=== PATIENT | female | born 2005 | race Caucasian/White ===

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

== ENCOUNTER 2024-10-03 10:22 | Outpatient (CLI) | payer BC, SELFPAY ==
--- NOTE | ~2024-10-03 | US_ITS ---
EXAMINATION: US abdomen complete DATE: 10/03/2024 11:16 INDICATION: Abnormal liver enzymes TECHNIQUE: Multiple grayscale and Doppler ultrasound images of the abdomen were obtained. COMPARISON: None FINDINGS: The pancreatic head and body are normal in appearance. The pancreatic tail is not visualized. Abdomi nal aorta is normal measuring 1.9 cm in AP diameter proximally, 1.5 cm in the mid aorta and 1.7 cm in the distal aorta. The inferior vena cava is normal. Liver has normal echogenicity and contour, with a smooth surface. No liver lesion identified. No intrahepatic biliary duct dilation suspected. Portal venous flow was seen in the hepatopetal, normal direction and has normal Doppler waveform. The gallb ladder is normal in appearance. There is no cholelithiasis. The common bile duct measures 4-5 mm, wh ich is normal. Sonographic Vargas sign was reported as negative by the semi truck driver. There is normal r enal contour and echogenicity bilaterally. The right kidney measures 9.4 x 4.2 x 4.6 cm and the left 11.7 x 5.8 x 4.4 cm. There are no focal renal lesions identified. There is no hydronephrosis. Alexia l spleen measuring 12.0 cm maximal length. IMPRESSION: 1. Normal abdominal ultrasound. Reviewed, dictated and finalized at location B. [employer]ESSING [employer]MENT [employer]IC
== END 2024-10-03 10:23 | disposition home or self-care (01) ==
LOC: MICIMG 10:23
PROVIDERS: PCP Family Medicine; Visit Provider Nurse Practitioner Family
DX: R74.8 Abnormal levels of other serum enzymes (principal)
CPT/HCPCS: 76700

== ENCOUNTER 2025-03-10 01:41 | Day surgery (SDC) | payer BC, SELFPAY ==
[2025-02-27 14:33] VITALS: BMI 39.7
[2025-03-10 09:15] VITALS: BP 132/73; PULSE 86; RESP 18; TEMP 36.1; O2SAT 100; BMI 40.4
[2025-03-10 09:18] LABS: BEDSIDEPREGUCG Negative (Negative)
[2025-03-10] MEDS: LACTATED RINGERS 1,000 ML 150 ML IV CONT (09:28)
--- NOTE | 2025-03-10 09:33 | P.PNAN_ITS ---
Anes - Initial Pre Proc Eval Procedure: Operation Date: 03/10/25 10:30 Proposed Procedures p Esophagogastroduodenoscopy & Colonoscopy - Anderson Terrell MD Date/Time: 03/10/25 09:33 Surgeon: Anderson Terrell MD Pre Op Diagnosis: Hemorrhage of anus and rectum,Diarrhea Patient Data Age: 19 Gender: F Height: 1.8 m Weight: 131.6 kg Last Vital Signs Temp 36.1 C L 03/10/25 09:15 Pulse 86 03/10/25 09:15 Resp 18 03/10/25 09:15 BP 132/73 03/10/25 09:15 Pulse Ox 100 03/10/25 09:15 O2 Del Method Room Air 03/10/25 09:15 Allergies Allergy/AdvReac Type Severity Reaction Status Date / Time azithromycin Allergy Mild Rash Verified 03/10/25 09:13 Home Medications ?Medication ?Instructions ?Recorded ?Confirmed ?Type bupropion HCl 300 mg 24 hr tablet, 300 mg PO QAM #90 tabs 09/12/24 03/10/25 Rx extended release dicyclomine 10 mg capsule 10 mg PO TID 1 month #90 caps 12/02/24 03/10/25 Rx esomeprazole magnesium 40 mg 40 mg PO DAILY 3 months #90 caps 12/02/24 03/10/25 Rx capsule,delayed release (Nexium) norethindrone 1 mg-ethinyl 1 tablet PO DAILY #84 tabs 01/06/25 03/10/25 Rx estradiol 20 mcg (21)-iron 75 mg (7) tablet (Blisovi Fe 10/27 (28)) lisdexamfetamine 40 mg capsule 40 mg PO QAM #30 caps 01/15/25 02/27/25 Rx (Vyvanse) rimegepant 75 mg disintegrating 75 mg PO ONCE PRN migraine 01/15/25 02/27/25 Rx tablet (Nurtec ODT) headache #8 tabs Laboratory Tests 03/10/25 09:14 POC Urine HCG, Qual Negative (Negative) Patient hx anesthesia problems: none Family hx anesthesia problems: none Results Review: All pre-operative results and documents have been reviewed as part of the pre- operative evaluation. [facility] Past Medical History Medical History (Updated 03/10/25 @ 07:44 by Chandra Henning DO) Asthma IBS (irritable bowel syndrome) Morbid obesity Depression Anxiety Adult BMI 34.0-34.9 kg/sq m BMI 36.0-36.9,adult BMI over 35 Family History Family History Father Depression bipolar Mother No problems noted. Sibling No problems noted. Grandparent Hypertension maternal grandmother Social History Social History Smoking status: Never smoker Second hand tobacco smoke exposure: No Alcohol intake: current Alcohol use details: socially Substance use: current Substance use type: marijuana Do You Feel Safe in your Home?: Yes Lack of Transportation: No Lack of Food: Never True Current Housing: I Have Housing Concerned About Future Housing: No Difficulty Paying Gas/Electric Bills: No Difficulty Paying for Meds: No Currently Unemployed: No Education: High School Diploma/GED Difficulty w/ Childcare or Family Care: No Living arrangements: with family Occupation/Education: occupation 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 Gender identity (if verbalized by the patient): Female Sexual Orientation (if Verbalized by the Patient): Straight or Heterosexual Anes - Eval Final PreProcedure Day of Procedure 03/10/25 09:33 Patient weight: morbidly obese Heart: regular rate and rhythm Lungs: clear to auscultation Airway: Mallampati scale class II Neurological: alert and oriented Last oral intake: >/= 8 hours ASA classification: III Emergent: no Anesthetic plan: proceed Anesthesia type and monitoring: general GIVS and standard monitoring Results Review: All pre-operative results and documents have been reviewed as part of the pre- operative evaluation. Informed Consent: The patient's anesthetic plan and its attendant risks and benefits were discussed with the patient/family/POA. Questions were solicited and answers provided to the satisfaction of the patient/family/POA.
[2025-03-10 10:51] LABS: Beta HCG Quantitative < 2.39 mIU/ML
--- NOTE | 2025-03-10 11:05 | PM.IMHP ---
H&P: HPI History of Present Illness Date/Time: 03/10/25 11:05 Chief Complaint: GERD-chronic diarrhea Narrative: the patient has been suffering from GERD since childhood, currently controlled with Nexium, to the point that she is completely asymptomatic while she is taking it. In addition, she has intermittent diarrhea associated with crampy lower abdominal pain, which gets relieved by defecation about 50% times. She has failed trials of Xifaxan and her calprotectin level is slightly elevated. She is referred for EGD and colonoscopy. Review of Systems Review of Systems: All systems reviewed & are unremarkable except as noted in HPI and below PMFSH Past Medical History Medical History (Updated 03/10/25 @ 11:06 by Anderson Terrell MD) Asthma IBS (irritable bowel syndrome) Morbid obesity Depression Anxiety Adult BMI 34.0-34.9 kg/sq m BMI 36.0-36.9,adult BMI over 35 Family History Family History Father Depression bipolar Mother No problems noted. Sibling No problems noted. Grandparent Hypertension maternal grandmother Social History Social History Smoking status: Never smoker Second hand tobacco smoke exposure: No Alcohol intake: current Alcohol use details: socially Substance use: current Substance use type: marijuana Do You Feel Safe in your Home?: Yes Lack of Transportation: No Lack of Food: Never True Current Housing: I Have Housing Concerned About Future Housing: No Difficulty Paying Gas/Electric Bills: No Difficulty Paying for Meds: No Currently Unemployed: No Education: High School Diploma/GED Difficulty w/ Childcare or Family Care: No Living arrangements: with family Occupation/Education: occupation 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 Gender identity (if verbalized by the patient): Female Sexual Orientation (if Verbalized by the Patient): Straight or Heterosexual Meds Home Medications and Allergies Home Medications ?Medication ?Instructions ?Recorded ?Confirmed ?Type bupropion HCl 300 mg 24 hr tablet, 300 mg PO QAM #90 tabs 09/12/24 03/10/25 Rx extended release dicyclomine 10 mg capsule 10 mg PO TID 1 month #90 caps 12/02/24 03/10/25 Rx esomeprazole magnesium 40 mg 40 mg PO DAILY 3 months #90 caps 12/02/24 03/10/25 Rx capsule,delayed release (Nexium) norethindrone 1 mg-ethinyl 1 tablet PO DAILY #84 tabs 01/06/25 03/10/25 Rx estradiol 20 mcg (21)-iron 75 mg (7) tablet (Blisovi Fe 10/27 (28)) lisdexamfetamine 40 mg capsule 40 mg PO QAM #30 caps 01/15/25 02/27/25 Rx (Vyvanse) rimegepant 75 mg disintegrating 75 mg PO ONCE PRN migraine 01/15/25 02/27/25 Rx tablet (Nurtec ODT) headache #8 tabs Allergies Allergy/AdvReac Type Severity Reaction Status Date / Time azithromycin Allergy Mild Rash Verified 03/10/25 09:13 Vital Signs Vital Signs - 24 hr 03/10/25 09:15 Temperature 97 F L Pulse Rate 86 Respiratory Rate 18 Blood Pressure 132/73 Pulse Oximetry 100 Oxygen Delivery Room Air Exam Const: General: cooperative and healthy appearing Resp: Effort & Inspection: normal respiratory effort and able to speak in complete sentences Auscultation: clear to auscultation bilaterally Cardio: Rate: regular rate Rhythm: regular rhythm GI: Inspection: normal to inspection GI Palp: No No hepatosplenomegaly present Auscultation: normal bowel sounds Rectal Exam: deferred Skin: General skin exam: normal color Psych: Appearance: grossly normal Mental Status: mental status grossly normal Assessment and Plan Assessment and plan (1) GERD (gastroesophageal reflux disease): Code(s): K21.9 - Gastro-esophageal reflux disease without esophagitis Status: Acute Assessment and Plan: The patient is deemed a good candidate for the procedures. Consent signed. Will proceed. (2) Diarrhea: Code(s): R19.7 - Diarrhea, unspecified Status: Acute
--- NOTE | 2025-03-10 11:28 | S_PTH ---
PATIENT: Cuco Tello LOC: [facility] U#:[id number] AGE/SX: 19/F ROOM: RE03/10/[address]: Anderson Terrell MD : 2005 BED: DIS: 03/10/2025 SPEC #: [id number] RECD: 03/10/25 13:08 STATUS: ROSSANA REPapa #: [id number] JAZMIN: 03/10/25 11:[address]: Anderson Terrell DEPT: [facility] Surgical RECD BY: Joseph Velazquez ENTERED: 03/10/25 13:09 SP TYPE: Surgical OTHR DR: Jacob Ornelas MD Tissues: A - Gastric Biopsy B - Gastric Biopsy C - Colon Biopsy D - Colon Polypectomy Procedures: Hematoxylin and Eosin Stain Gross and Microscopic Level 4
--- NOTE | 2025-03-10 11:28 | SUR.OPER ---
EGD end time:112, [id number] start time: [id number]
[2025-03-10 11:44] VITALS: BP 106/66; PULSE 76; RESP 16; O2SAT 100
[2025-03-10 11:52] VITALS: BP 119/71; PULSE 67; RESP 18; O2SAT 100
[2025-03-10 12:01] VITALS: BP 105/71; PULSE 67; RESP 20; O2SAT 100
== END 2025-03-10 12:09 | disposition home or self-care (01) ==
PROVIDERS: Anesthesiology; PCP Family Medicine; Referring Provider Nurse Practitioner Family; Visit Provider Internal Medicine Gastroenterology
PROC: 0DJ08ZZ Inspection of Upper Intestinal Tract, Via Natural or Artificial Opening Endoscopic (ICD-10-PCS; CPT 45378; principal; 2025-03-10 10:30)
DX: K21.9 Gastro-esophageal reflux disease without esophagitis (principal); K31.7 Polyp of stomach and duodenum; K29.30 Chronic superficial gastritis without bleeding; J45.909 Unspecified asthma, uncomplicated; F32.A Depression, unspecified; F41.9 Anxiety disorder, unspecified; K58.9 Irritable bowel syndrome, unspecified; F12.90 Cannabis use, unspecified, uncomplicated
CPT/HCPCS: 43239; 45380; 36415; 84702; 88305; J2003; J2704; J7120